=== PATIENT | female | born 2000 | race Caucasian/White ===

== ENCOUNTER 2023-07-22 11:18 | Outpatient (CLI) | payer BC, SELFPAY ==
[2023-07-22 18:50] LABS: Bacteria Urine None Seen /hpf; Non Pathogenic Casts 0-2; Squamous Epithelial Cell Urine None Seen /hpf (Few); WBC Urine 21-50 /hpf (0-3)
[2023-07-22 19:16] LABS: Appearance Urine Clear (Clear); Bilirubin Urine Negative (Negative); Blood Urine 3+ (Negative); Glucose Urine UA Negative (Negative); Ketones Urine Negative (Negative); Leukocyte Esterase Ur 2+ LEU/UL (Negative); Nitrate Urine Negative (Negative); Protein Urine Trace mg/dL (Negative); Urobilinogen Urine 0.2 mg/dL (<2.0)
[2023-07-22 19:17] LABS: Specific Grav Ur 1.003 (1.001-1.035)
[2023-07-22 19:18] LABS: Add Urine Microscopic? YES; Color Urine Light Red (Yellow)
== END 2023-07-22 11:19 | disposition home or self-care (01) ==
LOC: ANHBWCLAB 11:25
PROVIDERS: PCP Nurse Practitioner Adult Health; Visit Provider Family Medicine
DX: R39.9 Unspecified symptoms and signs involving the genitourinary system (principal)
CPT/HCPCS: 81001; 87077; 87086; 87088; 87186

== ENCOUNTER 2023-12-06 21:39 | Emergency (ER) | payer BC, SELFPAY ==
[2023-12-06 21:40] VITALS: BP 130/78; PULSE 105; RESP 18; TEMP 36.3; O2SAT 97
--- NOTE | 2023-12-06 21:46 | ED.GENADULT ---
HPI - General Adult General Chief complaint: OB/Uterine Contractions Stated complaint: urogenital female Time Seen by Provider: 12/06/23 21:45 Source: patient Mode of arrival: ambulatory Limitations: no limitations History of Present Illness HPI narrative: 23-year-old white female prima last menstrual period October 13 had a positive test 8 5 has appoint with her mental health social worker tomorrow. Complains of lower abdominal cramping her pelvis which continued today and then started spotting around 5:00 p.m. she has had heavy. Some clots 2 pads she has gone through in last 3 hours. Preemption a little lightheaded prior to coming in and I hour ago. Otherwise devise any cough fever sore throat runny nose other pain rash or itching other bleeding swelling lumps or bumps problems voiding or stooling. She had some nausea earlier no vomiting or diarrhea. Denies any other complaints. Presents today with her . Past medical history past surgical history medications none. 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 Related Data Home Medications Medication Instructions Recorded Confirmed No Home Medications 12/06/23 12/06/23 Allergies Allergy/AdvReac Type Severity Reaction Status Date / Time Penicillins Allergy Mild Hives Verified 07/01/22 10:28 Review of Systems Review of Systems: All systems reviewed & are unremarkable except as noted in HPI and below PMFSH Family History Family History Grandparent Malignant neoplasm of prostate Social History Social History Smoking status: Never smoker Lack of Transportation: No Lack of Food: Never True Current Housing: I Have Housing Concerned About Future Housing: No Difficulty Paying Gas/Electric Bills: No Difficulty Paying for Meds: No Currently Unemployed: No Education: High School Diploma/GED Difficulty w/ Childcare or Family Care: No Living arrangements: with family Additional occupation/education comments: [employer] Gender identity (if verbalized by the patient): Female Agree to blood products: Yes Exam Narrative: White female patient with no apparent distress.? Head normocephalic, atraumatic.? Eyes conjunctiva pink sclera nonicteric.? Extraocular movements are intact.? Ears externally normal.? Oropharynx is clear with moist mucous membranes without exudates.? Neck is supple nontender no lymphadenopathy.? Back is nontender.? Lungs are clear.? Heart is regular rate and rhythm without murmurs gallops or rubs.? Chest wall nontender. Abdomen is soft and nontender no hepatosplenomegaly or masses no CVA tenderness no abdominal bruits.? Extremities no cyanosis clubbing or edema.? Skin is warm and dry without rashes or lesions.? Neurological patient is alert and oriented x4.? Motor and sensory grossly intact.? Gait is normal. Course Vital Signs Vital signs: Vital Signs Temperature 36.3 C L 12/06/23 21:40 Pulse Rate 105 H 12/06/23 21:40 Respiratory Rate 18 12/06/23 21:40 Blood Pressure 130/78 12/06/23 21:40 Pulse Oximetry 97 12/06/23 21:40 Oxygen Delivery Room Air 12/06/23 21:40 Temperature 36.3 C L 12/06/23 21:40 Pulse Rate 75 12/06/23 22:06 Respiratory Rate 18 12/06/23 21:40 Blood Pressure 110/76 12/06/23 22:06 Pulse Oximetry 97 12/06/23 21:40 Oxygen Delivery Room Air 12/06/23 21:40 Medical Decision Making MDM Narrative Medical decision making narrative: Patient was placed in Room # 1 History and physical was performed. blood type A positive potassium 3.4 serum osmolality 282 the rest her CMP was normal H&H 11.7 and 33.6 the rest of CBC was normal. Quantitative beta HCG 1286 urinalysis +1 ketones 3-5 rbc's no bacteria Independent Historian: External Source Review: Differential Dx includes but not limited to
[2023-12-06 22:02] VITALS: BP 111/67; PULSE 71
[2023-12-06 22:04] VITALS: BP 108/78; PULSE 72
[2023-12-06 22:06] VITALS: BP 110/76; PULSE 75
--- NOTE | 2023-12-06 22:06 | PC.NURSE ---
lab notified of new orders
--- NOTE | 2023-12-06 22:10 | PC.NURSE ---
patient declined HIV testing to be done. form signed and placed on chart
--- NOTE | 2023-12-06 22:12 | PC.NURSE ---
lab at the bedside
--- NOTE | 2023-12-06 22:13 | PC.NURSE ---
patient being walked downt to the bathroom by Janna waddell, for urine sample
[2023-12-06 22:16] LABS: Hematocrit 33.6 % (35.0-49.0); Hemoglobin 11.7 g/dL (12.0-15.0); Mean Corpuscular HGB Conc 34.8 g/dL (32-36); Mean Corpuscular Hemoglobin 30.3 pg (27.0-31.0); Mean Platelet Volume 8.3 fl (9.2-11.8); Platelet Count Result 297 K/mm3 (150-420); Red Blood Count 3.86 M/mm3 (4.20-5.40); Red Cell Distribution Width 11.4 % (11.6-14.4); White Blood Count 10.2 K/mm3 (4.8-10.8)
--- NOTE | 2023-12-06 22:19 | PC.NURSE ---
lab in er. handed urine to lab
[2023-12-06 22:30] LABS: Add Urine Microscopic? YES; Appearance Urine Clear (Clear); Bilirubin Urine Negative (Negative); Blood Urine 1+ (Negative); Color Urine Light Yellow (Yellow); Glucose Urine UA Negative (Negative); Ketones Urine 1+ (Negative); Leukocyte Esterase Ur Negative LEU/UL (Negative); Nitrate Urine Negative (Negative); Protein Urine Negative (Negative); Urobilinogen Urine 0.2 mg/dL (0.2-1.0)
[2023-12-06 22:32] LABS: Bacteria Urine Trace /hpf; Squamous Epithelial Cell Urine Few /hpf (Few); WBC Urine None seen /hpf (0-3)
[2023-12-06 22:42] LABS: Blood Urea Nitrogen 8 mg/dL (7-18); Chloride 100 mmol/L (98-108); Estimated CRCL calculation 105 ml/min; Estimated Glomerular Filt Rate > 60; Glucose 96 mg/dL (70-99); Osmolality Calculated 282 mOsm/kg (285-295); Potassium 3.4 mmol/L (3.5-5.1); Sodium 137 mmol/L (136-145)
[2023-12-06 22:43] LABS: Alanine Aminotransferase 21 U/L (14-59); Albumin Level 3.9 g/dL (3.4-5.0); Alkaline Phosphatase 73 U/L (46-116); Aspartate Amino Transferase 15 U/L (15-37); Bilirubin,Total 0.3 mg/dL (0.00-1.00); Calcium 8.8 mg/dL (8.5-10.1); Total Protein 7.2 g/dL (6.4-8.2)
[2023-12-06 22:56] LABS: Anion Gap 12 mmol/L (4-12); Carbon Dioxide 25 mmol/L (21-32)
--- NOTE | 2023-12-06 23:06 | PC.NURSE ---
Dr Aguilar aware that blood work has resulted
--- NOTE | 2023-12-06 23:12 | PC.NURSE ---
Dr Aguilar at the bedside with handheld ultrasound.
[2023-12-06 23:43] VITALS: BP 112/72; PULSE 72; RESP 18; O2SAT 98
== END 2023-12-06 23:43 | disposition home or self-care (01) ==
PROVIDERS: Emergency Provider Emergency Medicine; PCP Obstetrics & Gynecology
DX: O20.0 Threatened abortion (principal); Z3A.00 Weeks of gestation of pregnancy not specified
CPT/HCPCS: 36415; 80053; 81001; 84702; 85027; 86850; 86900; 86901; 99283